=== PATIENT | female | born 1955 | race Caucasian/White ===

== ENCOUNTER 2024-02-08 12:30 | Outpatient (REF) | payer BC, SELFPAY ==
[2024-02-08 19:08] LABS: HCT 38.8 % (36.0-46.0); HGB 12.8 g/dL (11.2-15.7); MCH 32.2 pg (27.0-33.0); MCV 98 fL (80-95); MPV 9.1 fL (8.0-11.0); Platelet Count 428 10^3/uL (130-400); RBC 3.98 10^6/uL (3.93-5.22); RDW 12.9 % (11.7-14.6); RDW-SD 46.3 fL; WBC 10.59 10^3/uL (4.4-10.8)
[2024-02-08 19:10] LABS: Bilirubin Negative (Negative); Blood Negative (Negative); Clarity Clear (Clear); Glucose Negative (Negative); Ketones Negative (Negative); Leukocyte Esterase Trace (Negative); Nitrite Negative (Negative); Specific Gravity 1.015 (1.005-1.025); Urobilinogen 0.2 mg/dL (Up to 0.2)
[2024-02-08 19:18] LABS: Bacteria Rare HPF (Negative); C & S Indicated? No; Crystals Negative HPF (Negative); Epithelial Cells Rare HPF (Negative); Mucus Negative (Negative); RBC 0-2 HPF (0-2)
== END 2024-02-08 12:31 | disposition home or self-care (01) ==
LOC: NCHCN 12:30
PROVIDERS: PCP Nurse Practitioner Family; Visit Provider Nurse Practitioner Family
DX: R10.9 Unspecified abdominal pain (principal)
CPT/HCPCS: 85027; 81003; 81015

== ENCOUNTER 2024-08-17 16:14 | Outpatient (REF) | payer BC, SELFPAY ==
[2024-08-17 19:27] LABS: Abs Immature Grans 0.02 10^3/uL (0.0-0.06); Absolute Basophil Count 0.06 10^3/uL (0.0-0.2); Absolute Lymphocyte Count 1.48 10^3/uL (1.2-3.4); Absolute Monocyte Count 0.65 10^3/uL (0.1-0.8); Absolute Neutrophil Count 5.11 10^3/uL (1.2-6.7); Basophils % 0.8 %; Eosinophils % 1.3 %; HCT 42.1 % (36.0-46.0); HGB 13.9 g/dL (11.2-15.7); Immature Grans % 0.3 %; Lymphocytes % 19.9 %; MCH 32.3 pg (27.0-33.0); MCV 98 fL (80-95); MPV 9.7 fL (8.0-11.0); Monocytes % 8.8 %; Neutrophils % 68.9 %; Platelet Count 366 10^3/uL (130-400); RBC 4.31 10^6/uL (3.93-5.22); RDW 12.7 % (11.7-14.6); RDW-SD 45.5 fL; WBC 7.42 10^3/uL (4.4-10.8)
[2024-08-17 19:39] LABS: ALT 36 U/L (14-59); AST 26 U/L (15-37); Albumin 3.5 g/dL (3.4-5.0); Alkaline Phosphatase 85 U/L (46-116); Anion Gap 6.3 mmol/L (3-11); BUN 13 mg/dL (7-18); Bilirubin, Total 0.6 mg/dL (0.2-1.0); CO2 29.7 mmol/L (21.0-32.0); CREATININE 1.2 mg/dL (0.55-1.02); Calcium 9.7 mg/dL (8.5-10.1); Chloride 103 mmol/L (98-107); Estimated GFR 49.61 (mL/min/1.73m2); Glucose 148 mg/dL (74-106); Potassium 3.7 mmol/L (3.5-5.1); Sodium 139 mmol/L (136-145); Total Protein 6.9 g/dL (6.4-8.2)
== END 2024-08-17 16:15 | disposition home or self-care (01) ==
LOC: NCHCN 16:14
PROVIDERS: PCP Nurse Practitioner Family; Visit Provider Physician Assistant
DX: R19.7 Diarrhea, unspecified (principal)
CPT/HCPCS: 80053; 85025